=== PATIENT | female | born 2000 | race Caucasian/White ===

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

== ENCOUNTER → 2019-04-18 | Outpatient (REF) ==
[~2019-04-18] MED LIST: PROZ10CA7 PO; TOPA1TAB PO
== END ==
LOC: M LAB LCGH 11:53
PROVIDERS: ATTEND Surgery
DX: Z00.00 Encounter for general adult medical examination without abnormal findings (principal)

== ENCOUNTER → 2021-06-30 | Outpatient (CLI) | payer MEDICAID | LOC: M LABSMTC 09:02 | PROVIDERS: ATTEND Anesthesiology | DX: Z01.812 Encounter for preprocedural laboratory examination (principal); Z20.822 Contact with and (suspected) exposure to COVID-19 ==

== ENCOUNTER → 2021-12-15 | Outpatient (CLI) | payer MEDICAID, MEDICARE ==
[~2021-12-15] MED LIST changes: +ALLE10TA62 PO; +CLIN1LOT TOP; +DOCU100C16 PO; +LEVO50TA5 PO; +OMEP-173 PO; +PURE500C5 PO; +SENO8.6T5 PO
== END ==
LOC: M LABSMTC 09:07
PROVIDERS: ATTEND Anesthesiology
DX: Z01.812 Encounter for preprocedural laboratory examination (principal); Z20.822 Contact with and (suspected) exposure to COVID-19